=== PATIENT | female | born 1975 | race Caucasian/White ===

== ENCOUNTER 2022-02-02 21:53 | Emergency (ER) | payer SELFPAY ==
[2022-02-02 22:03] VITALS: BP 131/77; PULSE 84; RESP 16; TEMP 98.7; BMI 30.5
== END 2022-02-02 22:36 | disposition home or self-care (01) ==
LOC: FER 21:53
DX: R21 Rash and other nonspecific skin eruption (principal)
CPT/HCPCS: 99281-25